=== PATIENT | female | born 2000 | race African-American/Black ===

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

== ENCOUNTER 2022-12-11 03:28 | Emergency (ER) | payer SELFPAY | END 2022-12-11 04:32 | disposition home or self-care (01) | LOC: CSHERS 03:28 | DX: F41.9 Anxiety disorder, unspecified (principal); F17.290 Nicotine dependence, other tobacco product, uncomplicated | CPT/HCPCS: 71045; 93005 ==